=== PATIENT | male | born 1945 | race Caucasian/White ===

== ENCOUNTER → 2017-01-28 | Outpatient (CLI) | payer OTHER | LOC: HEART 5 08:51 | DX: R06.02 Shortness of breath (principal); Z79.899 Other long term (current) drug therapy | CPT/HCPCS: 94010; 94729 ==

== ENCOUNTER → 2021-05-29 | Outpatient (CLI) | payer OTHER ==
[~2021-05-29] MED LIST: ACETAMINOPHEN500 M1 PO; AMIODARONE HCL200 MG PO; ASPIR-LOW81 MG PO; ASPIRIN EC81 MG PO; ATIVAN0.5 MG PO; AVODART 0.5 MG0.5 MG PO; AVODART PO; COLACE 100MG C100 MG PO; COLCHICINE0.6 M1 PO; CREON DR 12,001 EACH PO; CYMBALTA60 MG PO; ELIQUIS 5 MG TAB5 MG PO; FLECTOR1 EACH TD; FLOMAX0.4 MG PO; FLORINEF 0.1 M0.1 MG PO; KEFLEX CAP 500500 MG PO; LOPRESSOR 25 MG25 MG PO; LOPRESSOR50 MG PO; MEGACE ES625 MG/5 M PO; MYCOSTATIN100000 UTS PO; NORVASC10 MG PO; NYSTATIN100000 UNI PO; PATADAY2.5 ML EYEBOTH; PERCOCET 5/325 T1 EA PO; PLAQUENIL 200200 MG PO; TRAMADOL HCL50 MG PO; VITAMIN D250000 UNIT PO; VOLTAREN 1%; ZESTRIL40 MG PO; ZOLPIDEM TART12.5 MG PO; ZYLOPRIM 300 M300 MG PO
== END ==
LOC: EXRD 11:26
DX: R06.02 Shortness of breath (principal); M54.9 Dorsalgia, unspecified; M25.551 Pain in right hip; M25.552 Pain in left hip; M51.36 Other intervertebral disc degeneration, lumbar region; R91.8 Other nonspecific abnormal finding of lung field
CPT/HCPCS: 71046; 72100; 73522

== ENCOUNTER 2021-06-19 14:53 | Emergency (ER) | payer OTHER ==
[2021-06-19 15:48] LABS: HEMOGLOBIN 16.1 gm/dl (14.0-17.5); RED BLOOD COUNT 5.06 M/UL (4.20-5.50); WHITE BLOOD COUNT 12.4 K/UL (4.5-11.0)
== END 2021-06-19 18:12 | disposition left against medical advice (07) ==
LOC: ER1 14:53 → CDU 17:23 → ER1 18:12
PROVIDERS: Emergency Medicine
DX: N17.9 Acute kidney failure, unspecified (principal); R00.1 Bradycardia, unspecified; E87.5 Hyperkalemia; I25.10 Atherosclerotic heart disease of native coronary artery without angina pectoris; I48.91 Unspecified atrial fibrillation; I50.9 Heart failure, unspecified; Z20.822 Contact with and (suspected) exposure to COVID-19
CPT/HCPCS: 70450; 71045; 80053; 82550; 82553; 83690; 83735; 83874; 83880; 84100; 84439; 84443; 84484; 85025; 85610; 85730; 93005; 99285; U0002

== ENCOUNTER → 2021-07-06 | Outpatient (CLI) | payer OTHER | LOC: KOH-I 06-15 13:00 | DX: R42 Dizziness and giddiness (principal); R41.3 Other amnesia | CPT/HCPCS: 70551 ==

== ENCOUNTER → 2021-09-22 | Outpatient (CLI) | payer OTHER ==
[2021-09-22 16:53] LABS: HEMOGLOBIN 15.5 gm/dl (14.0-17.5); RED BLOOD COUNT 4.86 M/UL (4.20-5.50); WHITE BLOOD COUNT 9.5 K/UL (4.5-11.0)
== END ==
LOC: LBRF 16:14
PROVIDERS: Nurse Practitioner Family
DX: Z13.228 Encounter for screening for other metabolic disorders (principal); I50.1 Left ventricular failure, unspecified; R79.9 Abnormal finding of blood chemistry, unspecified
CPT/HCPCS: 80053; 83880; 85025

== ENCOUNTER 2021-11-27 14:07 | Emergency (ER) | payer OTHER ==
[2021-11-27 15:03] LABS: HEMOGLOBIN 15.5 gm/dl (14.0-17.5); RED BLOOD COUNT 4.86 M/UL (4.20-5.50); WHITE BLOOD COUNT 9.4 K/UL (4.5-11.0)
[2021-11-27 15:45] LABS: BUN/CREATININE RATIO 8 (0-10)
[2021-11-27 18:55] LABS: BUN/CREATININE RATIO 8 (0-10)
[2021-11-27] MEDS ORDERED: K-TAB ER10 MEQ PO (19:08)
== END 2021-11-27 19:15 | disposition home or self-care (01) ==
LOC: ER1 14:07
PROVIDERS: Emergency Medicine
DX: E87.6 Hypokalemia (principal); I48.91 Unspecified atrial fibrillation; Z20.822 Contact with and (suspected) exposure to COVID-19; G93.40 Encephalopathy, unspecified; I10 Essential (primary) hypertension
CPT/HCPCS: 71045; 80048; 80053; 81001; 82550; 82553; 83735; 83880; 84439; 84443; 84484; 85025; 85610; 85730; 93005; 99285; U0002

== ENCOUNTER 2022-01-03 18:47 | Emergency (ER) | payer OTHER ==
[~2022-01-03 18:47] MED LIST changes: +K-TAB ER10 MEQ PO
[2022-01-03 19:28] LABS: HEMOGLOBIN 12.9 gm/dl (14.0-17.5); RED BLOOD COUNT 4.08 M/UL (4.20-5.50); WHITE BLOOD COUNT 6.8 K/UL (4.5-11.0)
[2022-01-03 19:59] LABS: BUN/CREATININE RATIO 6 (0-10)
== END 2022-01-04 15:25 | disposition short-term general hospital (02) ==
LOC: ER1 18:47
PROVIDERS: Physician Assistant
DX: T83.098A Other mechanical complication of other urinary catheter, initial encounter (principal); Z79.01 Long term (current) use of anticoagulants; Z88.8 Allergy status to other drugs, medicaments and biological substances; Z20.822 Contact with and (suspected) exposure to COVID-19; X58.XXXA Exposure to other specified factors, initial encounter
CPT/HCPCS: 80053; 81001; 85025; 85610; 96374; 96375; 99285; J2270; J2405; U0002

== ENCOUNTER 2022-03-08 17:58 | Emergency (ER) | payer OTHER ==
[2022-03-08 18:49] LABS: RED BLOOD COUNT 4.91 M/UL (4.20-5.50); WHITE BLOOD COUNT 15.2 K/UL (4.5-11.0)
[2022-03-08 19:02] LABS: BUN/CREATININE RATIO 13 (0-10)
[2022-03-08] MEDS ORDERED: ZOFRAN ODT 4 MG4 MG PO (23:51)
[2022-03-08] MEDS ORDERED: OMNICEF 300 MG300 MG PO (23:51)
[2022-03-08] MEDS ORDERED: BENTYL 20MG TAB20 MG PO (23:51)
== END 2022-03-09 01:10 | disposition home or self-care (01) ==
LOC: ER1 17:58
PROVIDERS: Physician Assistant
DX: N30.00 Acute cystitis without hematuria (principal); I48.91 Unspecified atrial fibrillation; I10 Essential (primary) hypertension; Z88.8 Allergy status to other drugs, medicaments and biological substances
CPT/HCPCS: 80053; 81001; 82150; 83605; 83690; 85025; 87086; 93005; 96374; 96375; 99284; J0696; J2270; J2405; Q9967